=== PATIENT | male | born 1970 | race Caucasian/White ===

== ENCOUNTER 2016-07-11 15:12 | Day surgery (SDC) | payer OTHER ==
[2016-07-10 16:22] VITALS: BMI 23.8
[~2016-07-11] VITALS: Ht 180.3 cm; Wt 78.9 kg
[2016-07-11] VITALS (11 sets, daily range): BP systolic 109–126; BP diastolic 65–76; PULSE 68–83; RESP 10–21; Ht 180.3 cm; Wt 78.9 kg
[~2016-07-11 15:12] MED LIST: ATOR40TA68 PO; VALS160T20 PO; ZOLP10TA PO
[2016-07-11] MEDS ORDERED: ROCURONIUM 50 MG INJ ONE (16:15)
[2016-07-11] MEDS ORDERED: LIDOCAINE 2% (SDV) 5 ML INJ ONE (16:15)
[2016-07-11] MEDS ORDERED: MIDAZOLAM 1 MG/ML 2 ML INJ ONE ×2 (16:15→20:14)
[2016-07-11] MEDS ORDERED: SUCCINYLCHOLINE CHLORIDE 100 MG/5 ML SYG IV ONE (16:15)
[2016-07-11] MEDS ORDERED: FENTAnyl 50 MCG/ML VIAL ONE ×2 (16:15→18:48)
[2016-07-11] MEDS ORDERED: PROPOFOL 0 ML ONE (16:15)
[2016-07-11] MEDS ORDERED: HYDROmorphONE (0.2 MG/ML) 10ML SYG IV PRN ×5 (16:30→19:30)
[2016-07-11] MEDS ORDERED: LABETALOL HCL 20MG INJ IV PRN (16:30)
[2016-07-11] MEDS ORDERED: KETOROLAC 30 MG INJ IV ONE (16:30)
[2016-07-11] MEDS ORDERED: FENTAnyl 50 MCG/ML VIAL IV PRN ×2 (16:30→19:30)
[2016-07-11] MEDS ORDERED: OXYCODONE/ACETAMINOPHEN (5/325) TAB PO PRN ×4 (16:30→19:30)
[2016-07-11] MEDS ORDERED: MEPERIDINE 25 MG INJ IV PRN ×2 (16:30→19:30)
[2016-07-11] MEDS ORDERED: ONDANSETRON 4 MG INJ IV PRN ×2 (16:30→19:30)
[2016-07-11] MEDS ORDERED: EPHEDrine SULFATE 50 MG/5 ML SYG IV PRN ×2 (16:30→19:30)
[2016-07-11] MEDS ORDERED: PROCHLORPERAZINE 10 MG INJ IV PRN (16:30)
[2016-07-11] MEDS ORDERED: METOCLOPRAMIDE 10 MG INJ IV PRN (16:30)
[2016-07-11] MEDS ORDERED: DIPHENHYDRAMINE 50 MG INJ IV PRN ×2 (16:30→19:30)
[2016-07-11] MEDS ORDERED: hydrALAzine 20 MG INJ IV PRN ×2 (16:30→19:30)
[2016-07-11] MEDS ORDERED: CEFAZOLIN 2 GM/50 ML (PMX) 50 ML IVPB ONE (17:30)
--- NOTE | 2016-07-11 17:33 | HPN ---
Date/Time of Note Date/Time of Note DATE: 07/11/16 TIME: 17:33 Interval H&P Admission Note Pt. seen H&P reviewed: No system changes LALIT MCLAUGHLIN DPM Jul 11, 2016 17:33
[2016-07-11] MEDS ORDERED: PROPOFOL 20 ML ONE (17:58)
[2016-07-11] MEDS ORDERED: ONDANSETRON 4 MG INJ ONE (17:59)
[2016-07-11] MEDS ORDERED: DEXAMETHASONE 4 MG/ML 1 ML INJ ONE (17:59)
[2016-07-11] MEDS ORDERED: ROPIVACAINE 0.5 % 30 ML VIAL ONE (18:04)
--- NOTE | 2016-07-11 18:04 | RADRPT ---
PROCEDURE: XR Right Ankle. CLINICAL INDICATION: Right ankle pain. TECHNIQUE: 2 views. Frontal and lateral. COMPARISON: None. FINDINGS: There is an acute oblique nondisplaced fracture of the lateral malleolus. There is a possible nondis placed fracture of the posterior malleolus seen on the lateral view. There is no other fracture and there is no dislocation. There is soft tissue mildly overlying the lateral malleolus. The articular surfaces are otherwise intact. There is no lytic or blastic lesion. There is no radiopaque foreign body. IMPRESSION: 1. Acute fracture of the lateral malleolus and possible nondisplaced fracture of the posterior mall eolus. 2. Overlying soft tissue swelling. 3. Otherwise unremarkable images of the right ankle. RPTAT: QQ .Shadi Philippe MD, Date Time Electronically viewed and signed by .Shadi Philippe MD, on 07/11/2016 18:04 .R/
[2016-07-11] MEDS ORDERED: LIDOCAINE 2% JELLY 5 ML ONE (18:07)
[2016-07-11] MEDS ORDERED: CLINDAMYCIN 900 MG/D5W (PMX) 50 ML IVPB ONE (18:26)
[2016-07-11] MEDS ORDERED: DIPHENHYDRAMINE 50 MG INJ ONE (18:26)
[2016-07-11] MEDS ORDERED: KETOROLAC 30 MG INJ ONE (18:48)
[2016-07-11] MEDS ORDERED: MIDAZOLAM 1 MG/ML 2 ML INJ IV PRN (19:30)
[2016-07-11] MEDS ORDERED: BUPIVACAINE 0.5% (SDV) 30 ML INJ ONE (19:53)
--- NOTE | 2016-07-11 20:18 | OPR ---
Date/Time of Note Date/Time of Note DATE: 07/11/16 TIME: 20:17 Operative Report Procedure Date: Jul 11, 2016 Preoperative Diagnosis Right ankle fracture with displacement S/P slip and fall Work related injury Postoperative Diagnosis Right ankle fracture with displacement S/P slip and fall Work related injury Operation Performed Open reduction with internal fixation or right ankle fracture with dislocation Application of posterior splint Intra operative use and interpretation of fluoroscopy Surgeon: LALIT MCLAUGHLIN DPM Anesthesia: general Estimated Blood Loss: minimal Specimens NONE Complications: None Pt Condition Post Procedure: stable Disposition: PACU Indications This is a pleasant 45 year old male patient involved in a work related injury; s /p slip and fall at work, resulting in right ankle fracture with dislocation. He was seen at the [facility]. Recommendation was made for open reduction with internal fixation of right ankle fracture. Risks and complications of this type of surgery was discussed with patient in great detail. Risks and complications include, but are not limited to, postop pain, postoperative infection, chronic pain and disability, failure of surgery to correct the problem, need for additional surgical procedures, malunion, delayed union, nonunion, wound infection, hardware failure, failure of implants, allergic reactions to suture material, deep venous thrombosis, limb loss, loss of life. Patient seems to understand the risks and complications discussed and agrees to the procedure. An informed consent was signed, obtained and placed in the chart. Operative Findings Right fibular fracture with dislocation. Procedure Description Procedure in detail: The patient was brought into the operating room and was placed on the operating table in the supine position. General anesthesia was administered to the patient by the anesthesiologist. Pneumatic thigh tourniquet was applied to the right thigh. All bony prominences were padded probably. A timeout was called by the circulating nurse. The correct site of surgery was identified. All instrumentation was checked. All necessary preoperative medications have been administered. The right lower leg including foot and ankle was scrubbed, prepped and draped in the usual aseptic manner. An Esmarch bandage was utilized to exsanguinate the right foot and leg and the pneumatic thigh tourniquet was inflated to 300 mmHg pressure. Procedure #1: Attention was directed to the lateral right ankle: A 6 cm lateral incision was made using a #10 blade along the fibula to the distal lateral malleolus. Care was taken to identify and protect vital neurovascular structures. Bleeders were cauterized as necessary. Dissection was made to the periosteal layer and the fracture site was identified. There was 5 mm of gapping noted with posterior proximal dislocation of the distal fragment. A curette was used to clean the fracture site. Next, a lobster clamp was used to reduce the fracture site and held in reduction. An interfragmentary lag screw was inserted across the fracture site. Next a lateral contoured malleable plate was placed and fixated with multiple screws. C-arm was used for intraoperative guidance and pictures. The ankle mortise was found to be realigned and the fracture was reduced anatomical position. The wound was flushed with copious amounts of sterile normal saline. The subcutaneous layer was closed using 3-0 Vicryl and the skin was closed using 4- 0 Monocryl in subcuticular stitch pattern. Steri-Strips were applied. Postoperative injection of 0.5% walking plan was given. Sterile dressing was applied. The thigh tourniquet was deflated at this time and prompt hyperemic response was noted to digits of the right foot. A posterior splint was applied to the right lower extremity. The patient tolerated the procedure and anesthesia well. He was transferred to the recovery room with vital signs stable and vascular status intact to the right foot. Patient will be discharged home after postoperative monitoring. Postoperative orders have been written. Patient will be followed up in 1 week. Patient is to remain nonweightbearing on the right lower extremity. Patient will be followed up in clinic next week. LALIT MCLAUGHLIN DPM Jul 11, 2016 20:18
[2016-07-11] MEDS ORDERED: HYDROCODONE/APAP (10/325) TAB PO PRN (20:30)
--- NOTE | 2016-07-11 23:24 | RADRPT ---
PROCEDURE: Intraoperative imaging of the right ankle with fluoroscopy. CLINICAL INDICATION: Right ankle pain. Intraoperative. TECHNIQUE: 5 images of the right ankle were obtained in the operating room with an image intensifi er. No radiologist was in attendance. 9.4 seconds of fluoroscopy time was used. COMPARISON: No prior study is available for comparison. FINDINGS: Images demonstrate open reduction and internal fixation with a lateral plate and multiple screws tra nsfixing the distal fibula. IMPRESSION: 1. Intraoperative imaging of the right ankle. RPTAT: QQ .Shadi Philippe MD, MD Date Time Electronically viewed and signed by .Shadi Philippe MD, on 07/11/2016 23:24 .R/
--- NOTE | 2016-07-11 23:24 | RADRPT ---
PROCEDURE: XR Right Ankle. CLINICAL INDICATION: Right ankle pain. Postop. TECHNIQUE: 3 views. Frontal, lateral, and oblique. COMPARISON: None. FINDINGS: There is a lateral plate and multiple screws transfixing the fracture of the distal fibula. Alignme nt is satisfactory. The ankle mortise is intact. There is no other fracture or dislocation. There is soft tissue swelling laterally. Bone detail is obscured by the overlying cast. There is no lytic or blastic lesion. IMPRESSION: 1. Satisfactory postoperative appearance of the right ankle. RPTAT: QQ .Shadi Philippe MD, Date Time Electronically viewed and signed by .Shadi Philippe MD, on 07/11/2016 23:24 .R/
== END 2016-07-11 22:07 | disposition home or self-care (01) ==
LOC: SDS 15:12 → EDBD 17:30 → SDS 22:07
PROVIDERS: ATTEND Podiatrist Foot & Ankle Surgery
DX: S82.61XA Displaced fracture of lateral malleolus of right fibula, initial encounter for closed fracture (principal); W01.0XXA Fall on same level from slipping, tripping and stumbling without subsequent striking against object, initial encounter; I10 Essential (primary) hypertension; E78.5 Hyperlipidemia, unspecified; F41.9 Anxiety disorder, unspecified
CPT/HCPCS: 27792; 73600; 73610; C1713; J1100; J1170; J1200; J1885; J2250; J2405; J2795; J3010; J0330